=== PATIENT | female | born 1955 | race African-American/Black ===

== ENCOUNTER 2018-09-18 14:28 | Emergency (ER) | payer OTHER ==
[2018-09-18 14:38] VITALS: BMI 30.2
--- NOTE | 2018-09-18 15:27 | PDOC ---
Attending Attestation - HPI HPI: 09/18/18 16:24 The patient is a 63 year old female with past medical history of hypertension and diabetes who presents to the ED with elevated blood pressure. Patient reports she was getting an elective doppler study today where her blood pressure was noted to be in the 200s. She also reports having an occipital headache for the past three days with associated neck and left arm pain/ tingling. She denies any associated palpitations, visual changes, chest pain, SOB or other focal neurological deficits. - Physicial Exam PE: 09/18/18 16:24 GENERAL: Awake, alert, and fully oriented, in no acute distress HEAD: No signs of trauma NECK: Normal ROM, supple, no lymphadenopathy, JVD, or masses LUNGS: Breath sounds equal, clear to auscultation bilaterally. No wheezes, and no crackles HEART: Regular rate and rhythm, normal S1 and S2, no murmurs, rubs or gallops EXTREMITIES: Normal range of motion, no edema. No clubbing or cyanosis. NEUROLOGICAL: Cranial nerves II through XII grossly intact. Normal speech, normal gait SKIN: Warm, Dry, normal turgor, no rashes - Medical Decision Making 09/18/18 16:32 Documentation prepared by Cece Pulido, acting as medical physicist for Dia Cobos MD.
[2018-09-18] MEDS ORDERED: ACETAMINOPHEN 500 MG TABLET (FP) PO ONE (16:06)
--- NOTE | 2018-09-18 16:06 | PDOC ---
History of Present Illness - General Chief Complaint: Blood Pressure Problem Stated Complaint: BLOOD PRESSURE PROBLEM Time Seen by Provider: 09/18/18 15:22 History Source: Patient Exam Limitations: No Limitations - History of Present Illness Initial Comments: 09/18/18 15:45 63 yo female pmh of DM and HTN presents to the ED with elevated BP and 3 day REGALADO. Pt states she was receiving an elective screening doppler study today (by [facility]) and was found to have pressures in the 200s and told to follow up in the ER. Pt also admits to a headache that woke her up out of sleep 3 days ago that is persistent, non radiating and made better with massage to the temples. Pt does admit to having a "funny feeling" on the left side of her face but did not take pressures at home. Denies N/V, changes in vision, changes in speech, one sided numbness or weakness. REGALADO waxes and wanes and pt did not try anything for the pain. Past History - Past Medical History Allergies/Adverse Reactions: Allergies Allergy/AdvReac Type Severity Reaction Status Date / Time Penicillins Allergy Verified 09/18/18 14:33 Sulfa (Sulfonamide Allergy Verified 09/18/18 14:33 Antibiotics) Home Medications: Ambulatory Orders Losartan/Hydrochlorothiazide [Losartan-Hctz 100-25 mg Tab] 1 each PO DAILY 09/18 metFORMIN XR [Glucophage *Xr* -] 500 mg PO DAILY@0700 09/18/18 Diabetes: Yes HTN: Yes - Surgical History Abdominal Surgery: Yes (hernia repair/tubal ligation) Cholecystectomy: Yes - Suicide/Smoking/Psychosocial Hx Smoking History: Never smoked Hx Alcohol Use: No Substance Use Type: None Review of Systems - Review of Systems Constitutional: No: Chills, Fever HEENTM: No: Blurred Vision, Double Vision Respiratory: No: Shortness of Breath Cardiac (ROS): No: Chest Pain ABD/GI: No: Constipated, Diarrhea, Nausea, Vomiting : No: Burning, Dysuria Musculoskeletal: No: Back Pain, Muscle Weakness Neurological: Yes: Headache. No: Numbness, Paresthesia, Dizziness *Physical Exam - Vital Signs Last Vital Signs Temp Pulse Resp BP Pulse Ox 82 18 174/83 H 99 09/18/18 14:37 09/18/18 14:37 09/18/18 14:37 09/18/18 14:37 ED Treatment Course - LABORATORY CBC & Chemistry Diagram: 09/18/18 16:22 09/18/18 16:22 Medical Decision Making - Medical Decision Making 09/18/18 17:24 63 yo female pmh HTN presents from clinic with systolic BPs in the 200s. On arrival, BP found to be in the 170s DDX: Ineffective drug of choice for pts BP, stress rxn from being in clinic and hospital, stroke (unlikely, no neuro deficits other than REGALADO which fits description of tension REGALADO) No current neurological deficits found on exam and no current complaints other than mild REGALADO made better with massage to the temples Pt given 1000mg PO tylenol which gave her pain relief from the REGALADO BP noted to be 144/76 1+ blood and 3 RBC in urine, will give follow up with Urology for this. Spoke with Dr. Jackson who would like the patient to follow up in his office this Thursday. Strict return precautions and DC home *DC/Admit/Observation/Transfer Diagnosis at time of Disposition: Blood pressure check - Discharge Dispostion Disposition: HOME Condition at time of disposition: Stable Decision to Admit order: No - Referrals Referrals: Cherie Jackson MD [Primary Care Provider] - Randolph Tabor MD [Staff Physician] - - Patient Instructions Printed Discharge Instructions: DI for High Blood Pressure Additional Instructions: Please follow up with your Primary Care Doctor and call for your appointment time scheduled for Thursday. Please continue taking your blood pressure medications as prescribed by your Primary Care Doctor. Make appointment with Urology regarding the blood found in your urine. Please return to the Emergency Room for new or worsening symptoms including but not limited to: persistent headaches assoicated with changes in vision, changes in speech or weakness/numbness on one side of your body. Thank you - Post Discharge Activity
[2018-09-18] MEDS ORDERED: ACETAMINOPHEN 325 MG TABLET (FP) ONE (16:12)
[2018-09-18 16:38] LABS: BASO % 1.4 % (0-2.0); EOS % 2.7 % (0-4.5); HEMATOCRIT 36.2 % (32.4-45.2); HEMOGLOBIN 12.5 GM/dL (10.7-15.3); LYMPH % 27.4 % (8-40); MCH 28.7 pg (25.7-33.7); MCHC 34.5 g/dl (32.0-36.0); MEAN CELL VOLUME 83.2 fl (80-96); MEAN PLT VOLUME 7.8 fl (7.5-11.1); MONO % 9.8 % (3.8-10.2); NEUT % 58.7 % (42.8-82.8); PLATELET COUNT 253 K/MM3 (134-434); RBC 4.35 M/mm3 (3.60-5.2); RDW 14.4 % (11.6-15.6); WHITE BLOOD COUNT 6.3 K/mm3 (4.0-10.0)
[2018-09-18 17:00] LABS: ALBUMIN 3.6 g/dl (3.4-5.0); ALK PHOS 110 U/L (45-117); ANION GAP 6 MMOL/L (8-16); BILIRUBIN,TOTAL 0.7 mg/dL (0.2-1); BLOOD UREA NITROGEN 14 mg/dL (7-18); CALCIUM 9.1 mg/dL (8.5-10.1); CHLORIDE 102 mmol/L (98-107); CO2 32 mmol/L (21-32); CREATININE 1.1 mg/dL (0.55-1.3); GLUCOSE,RANDOM 219 mg/dL (74-106); POTASSIUM 3.3 mmol/L (3.5-5.1); SGOT/AST 19 U/L (15-37); SGPT/ALT 22 U/L (13-61); SODIUM 140 mmol/L (136-145); TOT PROT 6.9 g/dl (6.4-8.2)
[2018-09-18 17:21] LABS: URINE APPEARANCE CLEAR; URINE BILIRUBIN NEGATIVE (<2.0 mg/dL); URINE COLOR STRAW; URINE GLUCOSE (UA) NEGATIVE (NEGATIVE); URINE KETONE NEGATIVE (NEGATIVE); URINE LEUK ESTERASE NEGATIVE (NEGATIVE); URINE NITRITE NEGATIVE (NEGATIVE); URINE PROTEIN NEGATIVE (NEGATIVE); URINE UROBILINOGEN NEGATIVE mg/dL (0.2-1.0)
[2018-09-18 17:29] LABS: EPI CELLS RARE /HPF (FEW); URINE MUCUS RARE
[2018-09-18 17:47] VITALS: BP 144/85; PULSE 78
== END 2018-09-18 18:06 | disposition home or self-care (01) ==
LOC: JER 14:28
DX: I10 Essential (primary) hypertension (principal); E11.9 Type 2 diabetes mellitus without complications; Z79.84 Long term (current) use of oral hypoglycemic drugs
CPT/HCPCS: 36415; 80053; 81003; 81015; 85025; 99282-25